=== PATIENT | female | born 1960 | race Caucasian/White ===

== ENCOUNTER 2019-04-16 07:59 | Emergency (ER) | payer OTHER, SELFPAY ==
[2019-04-16 08:00] VITALS: BP 122/87; PULSE 79; RESP 16; TEMP 36.7; O2SAT 100; BMI 21.4
--- NOTE | 2019-04-16 08:11 | ED.DCSUM_ITS ---
History of Present Illness Chief Complaint: Laceration Informant: Patient, Significant Other Occurred: Today - JPTA Mechanism/Context: Injury Context: Sudden Onset Timing: Continuous Quality of Pain: - - sore Location: left thumb Current Severity: Mild Maximum Severity: Severe Worsened by: palpation Relieved by: leaving alone Associated Symptoms: Negative for: Parasthesia, Weakness, Loss of Funtion Narrative: Patient states her left thumb was gloved when she was accidentally stepped on by a cow. This resulted in a nail injury mainly. She states as long she does not touch it she is not in a lot of pain and can move it. She is right-hand dominant. Last tetanus unknown. She states the glove remained intact and there was no dirt/soil contamination to the wound. Tetanus Immunization: Unknown Past Medical History - Allergies and Home Meds Allergies/Adverse Reactions: Allergies aspirin Allergy (Verified 04/16/19 08:00) Swelling caffeine [From Anacin] Allergy (Verified 04/16/19 08:00) Swelling Primary Care Physician: NOT,DEFINED [NON-STAFF] - Past Medical History: None Lives: Spouse/ Significant Other Smoking Status: Never smoker Review of Systems Musculoskeletal: Reports: Extremity Pain. Denies: Swelling Skin: Reports: Wounds Neurological: Denies: Weakness, Numbness Physical Exam Vital Signs/Narrative: Vital Signs Temp Pulse Resp BP Pulse Ox 04/16/19 08:00 98.1 F 79 16 122/87 H 100 General: Well nourished, Well developed Head: Normocephalic, Atraumatic Extremeties: Left thumb is injured in the and there are no other injuries. The left thumb pad and nailbed are tender due to avulsion of the nail, which is still adherent to the nail bed. See below. She has intact flexion and extension at the IPJ of the thumb, limited with regards to flexion due to pain a t the base of the nail which is avulsed. No other apparent injuries. The volar side is fairly atraumatic. Skin: Trauma - laceration across left thumb dorsum at nail fold, w/ 1-2mm of skin/cuticle left on the nail, which is completely avulsed from the fold yet still adherent to the nail bed. laceration progresses to both lateral aspects of the digit, 3cm total length, clean-appearing, full-thickness. Later, after nail removed, nail bed inspection reveals complex, U-lur-T-shaped stellate laceration/injury to the bed itself. Neurological: Alert, Oriented x3, Cranial nerves II-XII grossly intact, Normal Strength, Normal Sensation, Normal Gait Psychological: Normal affect, Normal Mood Procedures - Lacerations left thumb Length: 3 cm Depth: Sub Q Shape: Stellate Prep: Sterile Conditions, Chlorhexadine Laceration repair: Digital block - 10cc plain 1% lidocaine, Irrigated, Skin sutures - in and around nail bed Irrigated (ml): 40 Number of Sutures/Gustavus: 8 Suture Information: Ethilon, Simple, 5-0 Comment: Complex multifaceted laceration of the nailbed, including macerated tissue that was very challenging to bite with suture without tearing, given its proximity to the nail fold itself, which partially was avulsed as well with the nail. A total of 8 simple interrupted 5-0 nylon sutures were placed to to the nailbed and the laceration that extended outside of it on both sides of it. The nail itself was carefully pried from the nail bed prior to this, cleanse, and replaced beneath the nail fold to try to encourage nail regrowth. Follow-up care advised as well as dressing changes. X-ray showed no bony involvement. ED Disposition - Plan for ED Patient: Disposition: Home or Assisted Living Diagnosis: Nail avulsion, finger, Laceration of nail bed of finger Instructions: LACERATION, Hand, NAIL AVULSION, Complete Prescriptions: Hydrocodone Bitart/Apap 5-325 [[place] 5MG-325MG] 1 tab PO Q4H PRN PRN 2 Days #10 tab PRN Reason: Pain Prescription Printed Referrals: Doctor,Your [STAFF PHYSICIAN] - 10 Day for suture removal
--- NOTE | 2019-04-16 08:11 | RAD_ITS ---
STUDY: X-RAY - LEFT HAND, ATTENTION LEFT THUMB. REASON FOR EXAM: Female, 59 years old. Laceration following injury. TECHNIQUE: 3 view(s) of the finger were obtained. COMPARISON: None. FINDINGS: Normal metacarpal head. Normal metacarpophalangeal joint. Normal proximal phalanx. Normal distal phalanx. Normal distal interphalangeal joint. There is deformity of the soft tissues at the region of the nailbed. A punctate density is seen in the dorsal soft tissues overlying the distal portion of the proximal phalanx of the thumb. RAD/Finger(s) Min 2 Views IMPRESSION: Soft tissue injury. Findings suggestive of a tiny foreign body in the dorsal soft tissues overlying the distal portion of the proximal phalanx of the thumb. Electronically Signed: Fred Costa, at 8:50 EST , Service support ,
[2019-04-16] MEDS: HYDROcodone Bitartrate/Apap 5/325 Tablet PO (09:42)
== END 2019-04-16 09:55 | disposition home or self-care (01) ==
PROVIDERS: Emergency Provider Emergency Medicine; Family Provider Family Medicine; PCP Family Medicine
DX: S61.112A Laceration without foreign body of left thumb with damage to nail, initial encounter (principal); W55.29XA Other contact with cow, initial encounter; Y93.89 Activity, other specified; Y92.73 Farm field as the place of occurrence of the external cause; Y99.8 Other external cause status
CPT/HCPCS: 11760; 73140; 99284